=== PATIENT | female | born 1995 | race Caucasian/White ===

== ENCOUNTER 2024-07-27 11:17 | Emergency (ER) | payer OTHER ==
--- NOTE | 2024-07-27 11:39 | ED Physician Documentation ---
History of Present Illness - Stated complaint Stated Complaint: RT LEG PX - Chief complaint Chief Complaint: Ext Problem - History obtained from History obtained from: Patient - Additonal information Additional information: History of meniscus repair on the right about 10 years ago. She has developed medial right knee pain without specific injury over the last week which hurt a lot more today when getting up. pain is on the medial side of the knee and she thinks she probably has another meniscus injury. PD PAST MEDICAL HISTORY - Past Medical History Past Medical History: No - Past Surgical History Past Surgical History: Yes Ortho: Other - Allergies Allergies/Adverse Reactions: Allergies Allergy/AdvReac Type Severity Reaction Status Date / Time No Known Drug Allergies Allergy Verified 07/27/24 11:26 - Social History Does the pt smoke?: No Smoking Status: Never smoker Does the pt drink ETOH?: No Does the pt have substance abuse?: No - Immunizations Immunizations are current?: Yes - POLST Patient has POLST: No PD ED PE NORMAL - Vitals Vital signs reviewed: Yes - General General: Alert and oriented X 3, No acute distress - Extremities Extremities: Other (The right knee is nontender but does have an effusion. ACL, PCL, LCL, MCL testing is intact but she does have exquisite pain with grind testing.) - Neuro Neuro: Alert and oriented X 3, Normal speech Results - Vitals Vitals: Vital Signs - 24 hr 07/27/24 07/27/24 11:26 12:13 Temperature 36.5 C 36.5 C Heart Rate 52 L 50 L Respiratory 16 16 Rate Blood Pressure 127/71 124/70 O2 Saturation 98 100 Oxygen O2 Source Room air - Rads (name of study) Right knee x-ray demonstrates mild degenerative changes without acute disease. Relevant Findings:: Final report received, EMP independent interpretation of test PD Medical Decision Making - ED course ED course: Clinically and historically this is most likely a meniscus injury. She was placed in a knee immobilizer and up on crutches [place] She is active duty. Did not need a work note. Declined prescription pain relief. Departure - Departure Disposition: 01 Home, Self Care Clinical Impression: Medial meniscus tear Qualifiers: Tear current or old: current Encounter type: initial encounter Meniscus tear of knee type: unspecified type Laterality: right Qualified Code(s): S83.241A - Other tear of medial meniscus, current injury, right knee, initial encounter Condition: Good Record reviewed to determine appropriate education?: Yes Instructions: ED Meniscal Injury Knee Poss Follow-Up: [facility] [Provider Group] Comments: Based on your examination and history I do believe you probably have a meniscus tear as you suspect as well. [place] with consideration for follow-up MRI and orthopedics referral. Tylenol and/or ibuprofen as needed for pain. Return for new or worsening symptoms. The [facility] number is on this form as well but you will likely need a referral from the [place] to access that. Forms: PCP List
--- NOTE | 2024-07-27 12:06 | XRAY Report ---
PROCEDURE: Knee 4+V RT INDICATIONS: knee inj TECHNIQUE: 4 views of the knee(s) were acquired. COMPARISON: None. FINDINGS: Bones: No fractures or dislocations. Mild degenerative arthritis. No suspicious bony lesions. Soft tissues: No knee joint effusion. No suspicious soft tissue calcifications or masses. IMPRESSION: No acute bony abnormality. Mild degenerative arthritis. Reviewed by: Devin Alcala MD on 07/27/2024 12:05 PM PDT Approved by: Devin Alcala MD on 07/27/2024 12:05 PM PDT Station ID: [id number]
[2024-07-27 12:26] VITALS: BP 124/70; O2SAT 100
== END 2024-07-27 12:19 | disposition home or self-care (01) ==
LOC: ED 11:17
DX: S83.241A Other tear of medial meniscus, current injury, right knee, initial encounter (principal); X58.XXXA Exposure to other specified factors, initial encounter
CPT/HCPCS: 99283